=== PATIENT | female | born 1975 | race Caucasian/White ===

== ENCOUNTER → 2017-12-08 09:55 | Outpatient (CLI) | payer BC, SELFPAY ==
[2017-12-08 11:00] LABS: Absolute Lymphocyte Count 1.46 X10^3/ul (0.83-4.51); Absolute Neutrophil Count 3.7 X10^3/uL (2.0-7.7); Basophil# 0.01 X10^3/uL; Basophil% 0.2 % (0-1); Eosinophils% 1.7 % (0-5); Hematocrit 39.8 % (37-47); Hemoglobin 13.7 g/dl (12.0-15.0); Lymphocyte # 1.46 X10^3/ul (4.0); Lymphocyte % 24.8 % (19-41); Mean Corp Hgb Conc 34.4 g/gl (32-36); Mean Corpuscular Hgb 31.6 pg (27.0-32.0); Mean Corpuscular Volume 91.7 fL (81-99); Mean Platelet Vol. 10.7 fl (6.2-12.0); Monocyte# 0.56 X10^3/uL; Monocyte% 9.5 % (0-10); Neutrophil # 3.74 X10^3/uL (2.7-7.7); Neutrophil % 63.6 % (47-70); Platelet Count 284 K/mm3 (150-450); RBC Distribution Width CV 13.3 % (11.6-14.6); Red Blood Count 4.34 M/mm3 (4.2-5.4); White Blood Count 5.9 K/mm3 (4.4-11.0)
[2017-12-08 11:07] LABS: POSITIVE COUNT NO; POSITIVE DIFFERENTIAL NO; POSITIVE MORPHOLOGY NO
[2017-12-08 11:27] LABS: AST(SGOT) 16 U/L (15-37); Alanine Aminotransfer ALT/SGPT 21 U/L (13-56); Albumin, Serum 4.1 g/dL (3.2-5.0); Alkaline Phosphatase 36 U/L (45-117); Anion Gap 7 (5-15); BUN 11 mg/dL (7-18); BUN/Creat Ratio 12.3 RATIO (10-20); Calcium,Total 8.9 mg/dL (8.5-10.1); Chloride 107 mmol/L (98-107); Cholesterol 193 mg/dL (200); Creatinine, Serum 0.89 mg/dL (0.55-1.02); EST Glomerular Filtration Rate 73 mL/min (>60); Est Glom Filt Rate - Afr Amer 88 mL/min (>60); Globulin 4.1 g/dL (2.2-4.2); Glucose 92 mg/dL (74-106); High Density Lipoprotein 45 mg/dL; Potassium 3.8 mmol/L (3.5-5.1); Protein, Total 8.2 g/dL (6.4-8.2); Sodium Level 138 mmol/L (136-145); Thyroid Stim Hormone (TSH) 1.12 uIU/mL (0.358-3.74); Triglycerides 122 mg/dL; Very Low Density Lipoprotein 24 mg/dL (5-40)
[2017-12-21 12:06] LABS: HPV HC, High Risk Negative (Negative)
== END ==
PROVIDERS: Family Provider Family Medicine; PCP Family Medicine; Visit Provider Family Medicine
DX: D64.9 Anemia, unspecified (principal); N92.0 Excessive and frequent menstruation with regular cycle; Z12.4 Encounter for screening for malignant neoplasm of cervix
CPT/HCPCS: 36415; 80053; 80061; 84443; 85025; 87624; 88175; G0145

== ENCOUNTER → 2019-04-04 12:27 | Outpatient (CLI) | payer BC, SELFPAY ==
[2017-04-26 07:44] VITALS: BMI 29.1
--- NOTE | 2019-04-04 12:31 | RAD_ITS ---
STUDY: X-RAY - LEFT ELBOW REASON FOR EXAM: Female, 44 years old. Two-month history of pain. No known injury. TECHNIQUE: 3 view(s) of the elbow. COMPARISON: None. FINDINGS: Normal visualized humerus, radius and ulna. Normal radiocapitellar and ulnotrochlear articulations. The soft tissue structures are unremarkable. RAD/Elbow min 3 Views IMPRESSION: Normal x-ray examination of the elbow. Electronically Signed: Jose Enrique Noble, at 13:12 EDT , Service support ,
--- NOTE | 2019-04-04 12:31 | RAD_ITS ---
STUDY: X-RAY - LEFT SHOULDER REASON FOR EXAM: Female, 44 years old. 2 month history of pain. No known injury. TECHNIQUE: 4 view(s) of the shoulder. COMPARISON: Comparison is made with prior study dated April 23, 2012. FINDINGS: Normal glenohumeral articulation. Normal acromioclavicular joint. Normal acromion. Normal humeral head and visualized proximal humerus. The soft tissue structures are unremarkable. Normal visualized pulmonary apex. RAD/Shoulder min 2 Views IMPRESSION: Normal x-ray examination of the shoulder. Electronically Signed: Jose Enrique Noble, at 13:13 EDT , Service support ,
--- NOTE | 2019-04-04 12:31 | RAD_ITS ---
STUDY: X-RAY - CERVICAL SPINE REASON FOR EXAM: Female, 44 years old. 2 month history of left-sided neck pain. TECHNIQUE: 5 view(s) of the cervical spine were obtained including oblique views. COMPARISON: None FINDINGS: Normal anterior atlantoaxial articulation. Normal odontoid process. There is straightening of the normal cervical lordosis. Mild disc space narrowing and anterior spondylosis at the C4-C5, C5-C6 and C6-C7 levels. Normal visualized intervertebral neuroforamina. The soft tissue structures are unremarkable. RAD/Cerv Spine 4 or 5 Views IMPRESSION: Disc space narrowing and spondylosis at the C4-C5, C5-6 and C6-C7 levels. Electronically Signed: Jose Enrique Noble, at 13:04 EDT , Service support ,
== END ==
PROVIDERS: Family Provider Family Medicine; PCP Family Medicine; Referring Provider Family Medicine; Visit Provider Family Medicine
DX: M54.2 Cervicalgia (principal); M25.512 Pain in left shoulder; M25.529 Pain in unspecified elbow
CPT/HCPCS: 72050; 73030; 73080

== ENCOUNTER → 2019-04-11 16:17 | Outpatient (CLI) | payer BC, SELFPAY ==
--- NOTE | 2019-04-11 16:33 | MRI_ITS ---
STUDY: MRI CERVICAL SPINE WITHOUT CONTRAST REASON FOR EXAM: Female, 44 years old. L arm pain numbness and tingling, dull ache x 3 months TECHNIQUE: Standardized fat and water weighted pulse sequences were obtained in the sagittal and axial planes. COMPARISON: None FINDINGS: Normal foramen magnum and brainstem-cervical cord junction. Normal craniovertebral junction. Normal anterior atlantoaxial articulation. Normal odontoid process. Normal cervical lordosis. Normal vertebral bodies and posterior osseous elements. C2-3: Disc osteophyte complex without compressive sequelae. C3-4: Disc osteophyte complex with mild central canal and severe right foraminal stenosis. C4-5: Disc osteophyte complex with mild central canal and bilateral foraminal stenoses. C5-6: Disc osteophyte complex with mild central canal stenosis. C6-7: Disc osteophyte complex without compressive sequelae. C7-T1: Normal endplates. Normal disc height, signal and morphology. Normal central canal and intervertebral neural foramina. Normal cervical cord. Normal visualized soft tissue structures. MRI/Spine Cervical (Routine) IMPRESSION: Multilevel degenerative disease as described. Severe right foraminal stenosis at the C3-4 level. Electronically Signed: Julian Baker MD at 18:07 EDT Tel , Service support ,
== END ==
PROVIDERS: Family Provider Family Medicine; PCP Family Medicine; Referring Provider Family Medicine; Visit Provider Family Medicine
DX: M47.22 Other spondylosis with radiculopathy, cervical region (principal)
CPT/HCPCS: 72141

== ENCOUNTER → 2019-12-03 09:32 | Outpatient (CLI) | payer BC, SELFPAY ==
[2017-04-26 07:44] VITALS: BMI 29.1
[2019-12-03 12:42] LABS: Absolute Neutrophil Count 3.2 X10^3/uL (2.0-7.7); Basophil# 0.02 X10^3/uL; Basophil% 0.4 % (0-1); Eosinophil# 0.11 X10^3/uL; Eosinophils% 2.2 % (0-5); Hematocrit 36.1 % (37-47); Hemoglobin 11.2 g/dL (12.0-15.0); Lymphocyte % 23.9 % (19-41); Mean Corpuscular Hgb 27.6 pg (27.0-32.0); Mean Corpuscular Volume 88.9 fL (81-99); Mean Platelet Vol. 10.8 fl (6.2-12.0); Monocyte# 0.49 X10^3/uL; Monocyte% 9.8 % (0-10); NRBC Flagged by Analyzer 0 % (0-5); Neutrophil # 3.19 X10^3/uL (2.7-7.7); Neutrophil % 63.5 % (47-70); Platelet Count 288 K/mm3 (150-450); RBC Distribution Width CV 14.6 % (11.6-14.6); RBC Distribution Width SD 47.1 fl (35.1-43.9); Red Blood Count 4.06 M/mm3 (4.2-5.4)
[2019-12-03 12:53] LABS: Cholesterol 221 mg/dL (200); High Density Lipoprotein 50 mg/dL; Thyroid Stim Hormone (TSH) 0.91 uIU/mL (0.358-3.74); Triglycerides 124 mg/dL; Very Low Density Lipoprotein 25 mg/dL (5-40)
== END ==
PROVIDERS: PCP Family Medicine; Visit Provider Family Medicine
DX: R00.2 Palpitations (principal); E78.5 Hyperlipidemia, unspecified
CPT/HCPCS: 36415; 80061; 84443; 85025

== ENCOUNTER 2021-09-21 16:04 | Outpatient (CLI) | payer BC, SELFPAY ==
--- NOTE | 2021-09-21 16:06 | BI_ITS ---
MAMMOGRAPHY - BILATERAL SCREENING 3-D TOMOSYNTHESIS REASON FOR EXAM: Female, 46 years old. SCREENING PERTINENT HISTORY: No significant family history. TECHNIQUE: 2-D mammograms and 3-D Tomosynthesis of the breast (s) were performed. CAD was performed. COMPARISON: 02/02/2016 FINDINGS: The breast composition is heterogeneously dense that can obscure small breast masses. Scattered benign calcifications are seen. No dense spiculated masses or suspicious microcalcifications are identified. No architectural distortion is identified. There is no skin thickening or retraction. There has been no significant change since the prior study. BI/SCRN MAMM (CAD)W/WILMAR BILAT IMPRESSION: No mammographic signs of malignancy. Routine yearly mammograms recommended. ASSESSMENT CATEGORY: BIRADS Category 1: Negative. A letter regarding these results will be sent to the patient by the facility within 30 days. FOLLOW UP RECOMMENDATION: Yearly follow up mammogram recommended. (A) Approximately 10% of breast cancers are not detected by mammography. A normal mammogram should not delay biopsy of a clinically suspicious abnormality. Electronically Signed: Peter Gonzáles MD at 18:06 EDT ,
== END 2021-09-21 23:59 | disposition home or self-care (01) ==
PROVIDERS: PCP Family Medicine; Referring Provider Family Medicine; Visit Provider Family Medicine
DX: Z12.31 Encounter for screening mammogram for malignant neoplasm of breast (principal)
CPT/HCPCS: 77063; 77067

== ENCOUNTER 2021-09-28 16:15 | Outpatient (CLI) | payer BC, SELFPAY ==
--- NOTE | 2021-09-28 16:21 | US_ITS ---
STUDY: COMPLETE FEMALE PELVIC ULTRASOUND EXAMINATION OF 1639 HOURS AND 09/28/2021 REASON FOR EXAM: 46-year-old female with menometrorrhagia. LMP: 09/09/2021. TECHNIQUE: A complete pelvic ultrasound examination was performed via the transabdominal and endovaginal approaches. TECHNICAL QUALITY: Adequate. COMPARISON: None. FINDINGS: Cervical nabothian cysts are present. There is a normal size midline and retroverted uterus measures 8.7 cm in length by 7.0 cm in AP diameter by 5.5 cm in transverse diameter. The myometrium demonstrates multiple tiny cystic areas (Venetian blind sign) that probably represents adenomyosis. There is an endometrial thickness of 20 mm. The endometrium is hyperechoic. There is some increase in vascularity adjacent to the endometrial cavity. There is mild fluid distention of the endometrial cavity. There is no distinct evidence of endometrial cystic or solid mass lesions. There is no evidence of an intrauterine or ectopic . Right ovary measures 2.8 cm x 2.3 cm x 1.7 cm with a septated 1.7 cm simple cyst. There is no evidence of a solid mass lesion in the right ovary. There is no evidence of torsion. The left ovary measures 2.9 mm to 2.0 cm x 1.2 cm. There is a 1.2 cm diameter simple left ovarian cyst with septation. There is no evidence of a left ovarian solid mass lesion. There is no evidence of left ovarian torsion. There is no evidence of adnexal masses or free fluid in the cul-de-sac. The partially empty bladder has a normal appearance. US/Transvaginal Non- IMPRESSION: 1. Presence of cervical nabothian cysts. 2. Normal sized midline retroverted uterus with findings suggestive of adenomyosis. 3. Presence of a hypoechoic endometrium with a thickness of 20 mm with a small amount of fluid in endometrial cavity and mild increase in adjacent vascularity. 4. No evidence of an intrauterine ectopic . 5. Simple septated cysts in both ovaries: 1.7 cm simple cyst in the right ovary and a 1.2 cm simple cyst in left ovary. 6. No evidence of ovarian mass lesions or torsion. 7. No adnexal masses or free fluid in the cul-de-sac. 8. Normal appearing partially empty bladder. Electronically Signed: Parker Tsang MD at 22:12 EDT ,
== END 2021-09-28 23:59 | disposition home or self-care (01) ==
LOC: US 16:17
PROVIDERS: PCP Family Medicine; Referring Provider Family Medicine; Visit Provider Family Medicine
DX: N92.1 Excessive and frequent menstruation with irregular cycle (principal)
CPT/HCPCS: 76830; 76856

== ENCOUNTER 2021-10-13 12:20 | Outpatient (CLI) | payer BC, SELFPAY ==
--- NOTE | 2021-10-13 | IMM_PTH ---
PATIENT: CESAR CULP LOC: [facility] U#:[id number] AGE/SX: 46/F ROOM: RE10/13/[address]: Dr. Shiraz Triplett MD : 1975 BED: DIS: 10/13/2021 SPEC #: [id number] RECD: 10/15/21 13:20 STATUS: DONTE REGeraldo #: [id number] DAVID: 10/13/21 00:[address]: Shiraz Triplett DEPT: IMMUNOHISTOCHEMISTRY RECD BY: Natalie Moulton ENTERED: 10/15/21 13:20 SP TYPE: IMMUNO OTHR DR: Dr. Loyda Aviles DO Tissues: Endometrium, NOS Procedures: CD138 (initial) PHYSICIAN & INSTITUTION [place] [facility] [id number] SPECIMEN INFORMATION: Tissue Source: Endometrial biopsy Clinical Info: N92.0 Specimen Number: [id number] CPT code: 61765 METHODOLOGY: Deparaffinized sections of prefer/formalin-fixed tissue or PAP/DQ stained slides are incubated with monoclonal/polyclonal antibodies/oligonucleotide probes. Localization is made via biotin free immunoperoxidase method. Appropriate controls are performed and reacted as expected. Results on target cell population are indicated in the following table: RESULTS: ANTIBODY / CLONE RESULT CD138 (B-A38) negative These tests were developed and their performance characteristics determined by [facility]. They may not have been cleared or approved by the U.S. Food and Drug Administration. The FDA has determined that such clearance or approval is not necessary. The above immunohistochemical/dualISH markers are ordered and reviewed by the Pathologist. INTERPRETATION: Endometrium, biopsy: No evidence of chronic endometritis. AM:charito 10/18/2021
--- NOTE | 2021-10-13 11:15 | EMB_PTH ---
PATIENT: CESAR CULP LOC: [facility] U#:[id number] AGE/SX: 46/F ROOM: RE10/13/[address]: Dr. Shiraz Triplett MD : 1975 BED: DIS: 10/13/2021 SPEC #: [id number] RECD: 10/13/21 12:42 STATUS: DONTE JILL #: [id number] DAVID: 10/13/21 11:[address]: Shiraz Triplett DEPT: SURGICAL PATHOLOGY RECD BY: Loyda Jara ENTERED: 10/14/21 08:55 SP TYPE: ENDOM BX/C JOSE ALEJANDRO DR: Dr. Loyda Aviles, DO Tissues: Endometrium, NOS Procedures: Surgery Specimen Level IV HEADER OPERATION: Endometrial biopsy PRE-OP DIAGNOSIS: N92.0 TISSUE SUBMITTED: Endometrial biopsy MICROSCOPIC DIAGNOSIS Endometrium, biopsy: Proliferative endometrium with focal glandular breakdown. Mild chronic endometritis. See comment. AM:charito 10/15/2021 COMMENT Immunohistochemistry ([id number]) supports the above diagnosis. MICROSCOPIC DESCRIPTION Slides are reviewed. GROSS DESCRIPTION Received in fixative is one container labeled with the patient's name and designated endometrial biopsy. The specimen consists of multiple fragments of robles hemorrhagic soft tissue that in aggregate measure 2 x 2 x 0.2 cm. The specimen is totally submitted in one cassette. / SJ:rg 10/14/2021 TC:3 CPT: 72686
[2021-10-20 22:42] LABS: HPV Reflexed? NOT INDICATED
== END 2021-10-13 23:59 | disposition home or self-care (01) ==
LOC: LABSPEC 12:24
PROVIDERS: PCP Family Medicine; Visit Provider Obstetrics & Gynecology
DX: Z12.4 Encounter for screening for malignant neoplasm of cervix (principal); N92.0 Excessive and frequent menstruation with regular cycle
CPT/HCPCS: 88175; 88305; 88342; G0145

== ENCOUNTER 2021-11-19 06:02 | Day surgery (SDC) | payer BC, SELFPAY ==
[2021-11-16 12:00] LABS: Partial Thromboplast Time 26.8 Seconds (24.1-36.2); Prothrombin Time (Protime)PT. 12.9 SECONDS (11.7-14.9)
[2021-11-16 12:01] LABS: Hemoglobin 11.1 g/dL (12.0-15.0); Mean Corp Hgb Conc 31.7 g/dL (32-36); Mean Corpuscular Hgb 27.1 pg (27.0-32.0); Mean Corpuscular Volume 85.4 fL (81-99); Mean Platelet Vol. 10.6 fl (6.2-12.0); Platelet Count 290 K/mm3 (150-450); RBC Distribution Width CV 14.8 % (11.6-14.6); RBC Distribution Width SD 45.7 fl (35.1-43.9); White Blood Count 6.2 K/mm3 (4.4-11.0)
[2021-11-16 12:27] LABS: Internal QC Validated? YES +Cl - CLEAR BKGD; Pregnancy, Serum, hCG Quali. NEGATIVE Negative
--- NOTE | 2021-11-18 23:09 | PCM.HP.BLA ---
History and Physical Date of Admission: 11/19/21 Surgical History and Physical Rona Moran, a 46 year old female 2 0 0 0 2, presents for HTA, Hysteroscopy and D and C on November 19, 2021 at 0730 . -- Menorrhagia; Missed Menses -- Heavy bleeding for several years which began several years ago. Rona claims it started Heavy bleeding and has been present during menses. It is located in the Vagina. Associated signs and symptoms are Heavy bleeding lasting 4-5 years first two days heavy. EMBx and U/S OK. MEDICATIONS HISTORY: Patient is also takin. Prozac 40 mg capsule, One pill by mouth once a day 2. Adipex-P 37.5 mg tablet, 1/2 tab once daily on last dose this month ALLERGIES: NKA Infections - none Illnesses - no serious past illnesses Accidents - no injuries of consequence Hospitalizations - Childbirth Review of Systems: GENERAL - Denies fever, or chills SKIN - Denies skin changes EYES - Denies visual changes EARS - Denies difficulty hearing NOSE - Denies nasal congestion or bleeding MOUTH - Denies sore throat or difficulty swallowing NECK - Denies pain or swelling RESPIRATORY - Denies shortness of breath or wheezing CARDIOVASCULAR - Denies palpitations or chest pain GASTROINTESTINAL - Denies nausea, vomiting, diarrhea, constipation GENITOURINARY - Denies dysuria, frequency of urination, incontinence of urine MUSCULOSKELETAL - Denies joint or muscle pain NEUROLOGICAL - Denies localized numbness or weakness PSYCHIATRIC - Denies depression or anxiety ENDOCRINE - Denies heat or cold intolerance, weight loss or gain HEMATO-IMMUNOLOGIC - Denies excesive bleeding with cuts SOCIAL HISTORY: Alcohol Use - denies drinking Smoking - denies smoking Diet - balanced Diet Lifestyle - low stress lifestyle Exercise - active Seat Belt Use - always Employer - [employer] 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 Gallbladder removal ; - PHYSICAL EXAM BP- 132/84 Sitting, Right arm, regular cuff Weight- 160.0 lbs Height- 66 inch BMI:25.8 CONSTITUTIONAL - NAD, well nourished, and well developed SKIN - No rash, lesions, or ulcers HEENT - Normocephalic, PERRLA, EOMI NECK - no nodes, no nuchal rigidity and thyroid normal size and texture LYMPH NODES - Palpation of lymph nodes in neck and groins within normal limits LUNGS - CTA x2 without wheezes, crackles or rales CARDIAC - Regular rate and rhythm without rubs, murmurs, or gallops ABDOMEN - Without hepatosplenomegaly, distention, masses, rebound, or guarding; normal bowel sounds, no hernias EXTREMITIES - No edema or calf tenderness NEUROLOGICAL - Cranial nerves II-XII grossly intact PSYCHIATRIC - A and O to time, place, person, mood and affect External Genitial Vagina - non-tender without lesions Urethra/Urethral Meatus - non-tender Bladder - non-tender Vagina - vaginal brambila are pink and moist without loss of rugae and no evidence of atropy Cervix - without cervical motion tenderness and has normal size and features without evident lesions Uterus - multiparous size 6 cm & wt 75-125 g Adnexa - clear without massess or tenderness ASSESSMENT/PLAN: 1. Premenopausal Menorrhagia Reviewed pelvic u/s which was essentially normal for u/s done just before menses started. Discussed options such as OCPs versus ablation and pt desires the ablation. Plan HTA, D and C and H/S. Discussed RBAS and all questions answered.
[2021-11-19] VITALS (9 sets, daily range): BP systolic 109–125; BP diastolic 55–86; PULSE 61–84; RESP 16–18; TEMP 36.1–37; O2SAT 98–100; BMI 27.3
[2021-11-19] MEDS: Lactated Ringers 1,000 ML 15 ML IV (06:15)
[2021-11-19 06:31] LABS: Internal QC Validated? YES +Cl - CLEAR BKGD; Pregnancy, Urine Negative Negative
--- NOTE | 2021-11-19 07:30 | EMB_PTH ---
PATIENT: CESAR CULP LOC: [facility] [place] U#:[id number] AGE/SX: 46/F ROOM: RE11/19/[address]: Dr. Shiraz Triplett MD : 1975 BED: DIS: 11/19/2021 SPEC #: [id number] RECD: 11/19/21 08:42 STATUS: DONTE JILL #: [id number] DAVID: 11/19/21 07:[address]: Shiraz Triplett DEPT: SURGICAL PATHOLOGY RECD BY: Loyda Jara ENTERED: 11/19/21 08:58 SP TYPE: ENDOM BX/C JOSE ALEJANDRO DR: Dr. Loyda Aviles, DO Tissues: Endometrium, NOS Procedures: Surgery Specimen Level IV HEADER OPERATION: Hysteroscopy, D & C hydroablation PRE-OP DIAGNOSIS: Premenopausal menorrhagia TISSUE SUBMITTED: Endometrial curettings MICROSCOPIC DIAGNOSIS Endometrial curettings: Secretory endometrium. SJ:charito 11/22/2021 COMMENT Please make reference to previous specimen ([id number]) endometrium, biopsy with diagnosis of ?proliferative endometrium with focal glandular breakdown and mild chronic endometritis.? MICROSCOPIC DESCRIPTION Slides are reviewed. GROSS DESCRIPTION Received in fixative is one container labeled with the patient's name and designated endometrial curettings. The specimen consists of multiple irregular fragments of pink-robles soft tissue that in aggregate measure 5 x 3 x 0.2 cm. The specimen is totally submitted in two cassettes. / AM:charito 11/19/2021 TC:4 CPT: 05217
--- NOTE | 2021-11-19 07:35 | OP.PCM_ITS ---
Report of Operation Date of Procedure: 11/19/21 Pre-Operative Diagnosis: Menorrhagia Post-Operative Diagnosis: Menorrhagia Surgery/Procedure Performed:: Diagnostic Hysteroscopy, Dilation and Curettage, Hydrothermal Ablation Description of Surgical Findings:: 8 cm endometrial cavity without polyps or fibroids noted. Surgeon: Shiraz Triplett Type of Anesthesia: General (LMA) Anesthesiologist: Hiro Schwarz Specimen's removed: Endometrial curettings Estimated Blood Loss (mL): Minimal Fluids Replaced: Crystalloid Description of Procedure: Surgeon: Shiraz Triplett MD, FACOG Indication: This is a 46year old patient who has been having problems with extremely heavy menses. Conservative measures have not been helpful. Endometrial sampling was benign and pelvic ultrasound showed that ablation may be helpful. Pt has been counseled regarding the risks, benefits and alternatives of this procedure and all questions answered. She understands that only about half of patients will have amenorrhea after this procedure. Procedure: Patient taken to the operating room where after induction of general anesthesia the patient was prepped and draped in the usual sterile fashion. Bladder was drained of urine with a catheter. Anterior cervix grasped and cervix was dilated to about 17 Hebrew size. Hysteroscopic hydrothermal ablation (HTA) unit was place in the cervix and the above findings were noted. HTA unit was removed and the uterus was gently curretted removing all contents. An HTA ablation cycle was then carried out at about 90 degrees Centigrade for 10 minutes with virtually no fluid loss during the procedure. After an estelle ropriate cool down the HTA unit was removed with minimal bleeding noted. The patient tolerated the procedure well and was taken to the recovery room in satisfactory condition. Sponge, instruments and needle counts were all correct. There were no apparent complications of the surgery. Cefotan 2 gms IV was given prior to the procedure. Estimated Blood Loss: Minimal Specimen to Pathology: Endometrial Curettings Grafts/Implants Used: None Complications None Admit VTE Documentation VTE Present on Admission: Yes VTE Mechan Device Prophylaxis: SCD's
--- NOTE | 2021-11-19 07:39 | PCM.DC ---
Discharge Instructions Diet Discharge Diet: No restrictions Activity Discharge Activity: Return to Normal Activity, May Shower and May Take a Tub Bath May resume sexual activity in: 3 weeks Additional Activity Instructions:: Nothing in the vagina for 3-4 weeks please. Use Ibuprophen 800 mg orally every 8 hours as needed for pain. Can also add Tylenol 1000 mg every 8 hours if needed for pain. Drink lots of water. Call if bleeding more than a pad per hour. Clear to brownish discharge will last for about 3 weeks. Dressing / Incision Call your doctor if you observe: Fever of 101 or Higher, Inability to urinate, Inability to have a bowel movement and Using more than 1 pad per hour Follow Up Care Please Follow Up With: Shiraz Triplett MD When: 3 to 4 weeks Test Results: Test results from this visit will be discussed in further detail at your follow-up appointment, if applicable. Discharge Plan Admission Primary Reason for Your Visit: Endometrial Ablation Attending Provider: Shiraz Triplett Primary Care Provider: Loyda Aviles Discharge Orders/Prescriptions Prescriptions: No Action fluoxetine 20 MG tablet 20 mg PO DAILY RF: 0 Referrals / Follow Up: Loyda Aviles DO [Primary Care Provider] - Disposition Disposition (needs filled in before D/C Order can be placed): Home, Self Care
[2021-11-19] MEDS: Cefotetan 2 GM in 0.9% NS 100 ML IV (07:49)
[2021-11-19] MEDS: HYDROcodone Bitartrate/Apap 5/325 Tablet PO (09:28)
[2021-11-19] MEDS: Lactated Ringers 1,000 ML 100 ML IV (11:16)
--- NOTE | 2021-11-19 11:29 | SUR.PHASEII ---
AT APPROXIMATELY 1025, AMBULATED WITH ASSISTANCE OF 2 TO BATHROOM. UNABLE TO VOID AFTER ATTEMPT OF APPROXIMATELY 15 MINUTES. ASSISTED TO RETURN TO BED. BLADDER SCANNED FOR 300 CC.
== END 2021-11-19 11:55 | disposition home or self-care (01) ==
LOC: SDC 06:03 → AC 06:03
PROVIDERS: Anesthesiology; PCP Family Medicine; Referring Provider Obstetrics & Gynecology; Visit Provider Obstetrics & Gynecology
PROC: 0U5B8ZZ Destruction of Endometrium, Via Natural or Artificial Opening Endoscopic (ICD-10-PCS; CPT 58563; principal; 2021-11-19 07:15)
DX: N92.4 Excessive bleeding in the premenopausal period (principal)
CPT/HCPCS: 58353; 00940; 36415; 81025; 84703; 85027; 85610; 85730; 86850; 86900; 86901; 87426; 88305; C9803; J7120; J2405

== ENCOUNTER → 2023-07-07 | Outpatient (CLI) | payer OTHER, SELFPAY ==
--- NOTE | 2023-07-07 07:19 | BI_ITS ---
MAMMOGRAPHY - BILATERAL SCREENING 3-D TOMOSYNTHESIS REASON FOR EXAM: Female, 48 years old. Routine annual screening mammogram. PERTINENT HISTORY: No significant family history. TECHNIQUE: 2-D mammograms and 3-D Tomosynthesis of the breast (s) were performed. CAD was performed. COMPARISON: September 21, 2021, February 02, 2016 FINDINGS: The breast composition is composed of scattered fibroglandular density. Stable benign calcifications. No dominant masses, suspicious microcalcifications, asymmetries, skin thickening or nipple retraction. BI/SCRN MAMM (CAD)W/WILMAR BILAT IMPRESSION: No interval change and no mammographic signs of malignancy. Routine yearly mammogram recommended. ASSESSMENT CATEGORY: BIRADS Category 2: Benign. A letter regarding these results will be sent to the patient by the facility within 30 days. FOLLOW UP RECOMMENDATION: Yearly follow up mammogram recommended. (A) Approximately 10% of breast cancers are not detected by mammography. A normal mammogram should not delay biopsy of a clinically suspicious abnormality. Electronically Signed: Schuyler Nolasco MD at 12:18 EST ,
--- OUTSIDE RECORDS SUMMARY | 2023-07-07 07:22 | XMS RPT_ITS | CCD ---
Author Name Unknown Address [address] [place] [address] Organization [facility] Care Team Providers Care Geophysics Professor Name Role Phone Loyda Aviles DO Primary Care Provider LOYDA AVILES Primary Care Unavailable SIMONE MAC Referring Unavailable LOYDA AVILES Primary Care Unavailable SKYLER SHOOK Referring Unavailable LOYDA AVILES Primary Care Unavailable LOYDA AVILES Primary Care Unavailable Medications Completed/Discontinued Medications Medication Drug Class(es) Dates Sig (Normalized) Sig (Original) FLUoxetine 40 mg oral capsule (5 sources) Serotonin Reuptake Inhibitor Start: 01-03-2022 FLUoxetine (PROZAC) 40 mg capsule Ibuprofen (2 sources) Nonsteroidal Anti-inflammatory Drug ibuprofen (MOTRIN ORAL) Take by mouth. 0 Active Problems Active Problems Problem Classification Problem Date Documented Da te Episodic/Chronic Fracture of lower limb (1 source) Closed fracture of left foot; Translations: [Unspecified fracture of left foot, initial encounter for closed fracture] Episodic Other connective tissue disease (1 source) Pain in left foot; Translations: [Pain in left foot] Episodic Other connective tissue disease (1 source) Pain in left foot; Translations: [Foot pain, left] Onset: 05-03-2022 Episodic Past or Other Problems Problem Classification Problem Date Documented Da te Episodic/Chronic Abdominal pain (10 sources) Right upper quadrant pain; Translations: [Right upper quadrant pain] Onset: 08-15-2014 08-15-2014 Episodic Other upper respiratory infections (2 sources) Acute upper respiratory infection; Translations: [Acute upper respiratory infection, unspecified] Onset: 01-06-2022 Episodic Results Test Name Value Interpretation Reference Range Facil ity Vital Signs Date Time Vital Sign Value Performing Clinician Faci lity 05-03-2022 11:06-0400 Body temperature 99 [degF] Simone Mac SHIP'S SURVEYOR.METAL OFF BEARER Work Phone: [facility] 05-03-2022 11:06-0400 Diastolic blood pressure 76 mm[Hg] Simone Mac SHIP'S SURVEYOR.METAL OFF BEARER Work Phone: [facility] 05-03-2022 11:06-0400 Heart rate 67 /min Simone Mac SHIP'S SURVEYOR.METAL OFF BEARER Work Phone: [facility] 05-03-2022 11:06-0400 Respiratory rate 16 /min Simone Mac SHIP'S SURVEYOR.METAL OFF BEARER Work Phone: [facility] 05-03-2022 11:06-0400 SaO2% (BldA) [Mass fraction] 98 % Simone Mac SHIP'S SURVEYOR.METAL OFF BEARER Work Phone: [facility] 05-03-2022 11:06-0400 Systolic blood pressure 124 mm[Hg] Simone Mac SHIP'S SURVEYOR.METAL OFF BEARER Work Phone: [facility] 01-06-2022 10:29-0400 Body temperature 99 [degF] Skyler Shook MD Work Phone: [facility] 01-06-2022 10:29-0400 Body weight 71.85 kg Skyler Shook MD Work Phone: [facility] 01-06-2022 10:29-0400 Diastolic blood pressure 84 mm[Hg] Skyler Shook MD Work Phone: [facility] 01-06-2022 10:29-0400 Heart rate 65 /min Skyler Shook MD Work Phone: [facility] 01-06-2022 10:29-0400 Respiratory rate 16 /min Skyler Shook MD Work Phone: [facility] 01-06-2022 10:29-0400 SaO2% (BldA) [Mass fraction] 100 % Skyler Shook MD Work Phone: [facility] 01-06-2022 10:29-0400 Systolic blood pressure 126 mm[Hg] Skyler Shook MD Work Phone: [facility] Encounters Encounter Date Encounter Type Care Provider Facility Start: 05-11-2022 [facility] Start: 05-03-2022 End: 05-03-2022 ambulatory LOYDA AVILES Facility:[facility] Start: 05-03-2022 End: 05-03-2022 Patient encounter procedure Simone Mac APRN.METAL OFF BEARER Work Phone: [facility] Plan of Treatment Date Care Activity Detail Author Start: 03-10-2022 Influenza vaccination INFLUENZA (#1) [facility] Start: 01-06-2022 End: 01-20-2022 SARS-CoV-2 (COVID-19) RNA [Presence] in Respiratory specimen by DEJAH with probe detection [facility] Work Phone: Payers Date Payer Category Payer Private Health Insurance [employer] Jim FANA OAP [id number] 2021-Present [phone] [address] [place] [address] Open Access [id number] 2021 Private Health Insurance [id number] 2021 Unknown JAY JAY SANDERS ACCE SS PPO [id number] 2021-Present [phone] [address] [place] [address] PPO [id number] 2021 Unknown [id number] Social History Date Type Detail Facility Start: 01-06-2022 End: 05-03-2022 Tobacco smoking status NHIS Never smoked tobacco [facility] Start: 01-06-2022 End: 05-03-2022 Tobacco use and exposure Smokeless tobacco non-user [facility] Start: 01-06-2022 End: 05-03-2022 Alcohol intake Lifetime non-drinker (finding) [facility] Start: 01-06-2022 History SDOH Alcohol Frequency 1 [facility] Start: 1975 Sex Assigned At Not on file [facility] Start: 12-27-2021 End: 05-03-2022 Exposure to SARS-CoV-2 (event) Not sure [facility] Work Phone: Clinical Notes 01-06-2022 to 05-11-2022 Timo Adkins - 05/11/2022 4:46 PM EDTPatient Ludwig Mac APRN.CNP - 05/03/2022 11:09 AM EDTTelephone Encounter - Vannessa Fariaxiomarasloane SPECIAL SERVICE OFFICER - 01/07/2022 2:58 PM EDT Note Date & Type Note Facility 05-11-2022 Note HNO ID: [id number] Author: Timo Adkins Service: ? Author Type: ? Type: Progress Notes Filed: 05/11/2022 4:47 PM Note Text: POPULATION HEALTH NAVIGATION OUTREACH Action/FYI Attempted to contact pt, voicemail not set up Pt identified by name and : NO Outreach Outcome/Action Unable to reach patient: Phone number not valid / voicemail full Did you use a PCP flex slot to schedule this appointment? No Reason for Outreach Care Gap or Scheduling/Wellness visits Payer: Payor: ANALIA / Plan: ANALIA OAP / Product Type: Open Access / Care Gap Reviewed:: Specialty Scheduling Reminder: Reminder note to check Health Maintenance for items below Health Maintenance items due: HEPATITIS B(1 of 3 - 3-dose series) Never done HEPATITIS C SCREENING Never done HIV SCREENING Never done DTAP,TDAP,TD(1 - Tdap) Never done PAP TESTING Never done HPV TESTING Never done MAMMOGRAM Never done LIPID SCREEN Never done DIABETES SCREEN Never done COLORECTAL CANCER SCREENING Never done COVID-19 VACCINE(3 - Booster for Moderna series) due on 11/30/2020 DEPRESSION ASSESSMENT Never done INFLUENZA(1) due on 03/10/2022 Message Sent to Practice: No Navigation Signature: Timo Adkins May 11, 2022 4:46 PM [facility] 05-11-2022 History of Presen t illness Narrative POPULATION HEALTH NAVIGATION OUTREACH Action/FYI Attempted to contact pt, voicemail not set up Pt identified by name and : NO Outreach Outcome/Action Unable to reach patient: Phone number not valid / voicemail full Did you use a PCP flex slot to schedule this appointment? No Reason for Outreach Care Gap or Scheduling/Wellness visits Payer: Payor: ANALIA / Plan: [employer] OAP / Product Type: Open Access / Care Gap Reviewed:: Specialty Scheduling Reminder: Reminder note to check Health Maintenance for items below Health Maintenance items due: HEPATITIS B(1 of 3 - 3-dose series) Never done HEPATITIS C SCREENING Never done HIV SCREENING Never done DTAP,TDAP,TD(1 - Tdap) Never done PAP TESTING Never done HPV TESTING Never done MAMMOGRAM Never done LIPID SCREEN Never done DIABETES SCREEN Never done COLORECTAL CANCER SCREENING Never done COVID-19 VACCINE(3 - Booster for Moderna series) due on 11/30/2020 DEPRESSION ASSESSMENT Never done INFLUENZA(1) due on 03/10/2022 Message Sent to Practice: No Navigation Signature: Timo Adkins May 11, 2022 4:46 PM documented in this encounter [facility] 05-11-2022 Note Patient Outreach (AC CC) RONA CULP ([id number]) 1975 F Date Time Provider Department 05/11/22 PCP (HISTORICAL) [facility] During your visit today, we recorded the following information about you: Timo Adkins 05/11/2022 4:47 PM Signed POPULATION HEALTH NAVIGATION OUTREACH Action/FYI Attempted to contact pt, voicemail not set up Pt identified by name and : NO Outreach Outcome/Action Unable to reach patient: Phone number not valid / voicemail full Did you use a PCP flex slot to schedule this appointment? No Reason for Outreach Care Gap or Scheduling/Wellness visits Payer: Payor: ANALIA / Plan: CIG[employer] OAP / Product Type: Open Access / Care Gap Reviewed:: Specialty Scheduling Reminder: Reminder note to check Health Maintenance for items below Health Maintenance items due: HEPATITIS B(1 of 3 - 3-dose series) Never done HEPATITIS C SCREENING Never done HIV SCREENING Never done DTAP,TDAP,TD(1 - Tdap) Never done PAP TESTING Never done HPV TESTING Never done MAMMOGRAM Never done LIPID SCREEN Never done DIABETES SCREEN Never done COLORECTAL CANCER SCREENING Never done COVID-19 VACCINE(3 - Booster for Moderna series) due on 11/30/2020 DEPRESSION ASSESSMENT Never done INFLUENZA(1) due on 03/10/2022 Message Sent to Practice: No Navigation Signature: Timo Adkins May 11, 2022 4:46 PM Allergies As of Date: 05/11/2022 (No Known Allergies) Date Reviewed: 05/03/2022 Reviewed by: Shiela Beckett LPN - Fully Assessed Prescriptions as of 05/11/2022 - ibuprofen (MOTRIN ORAL) Take by mouth. - FLUoxetine (PROZAC) 40 mg capsule Problem List As Of Date 05/11/2022 Noted Resolved Abdominal pain, right upper quadrant [R10.11] 08/15/2014 Abdominal pain, epigastric [R10.13] 08/15/2014 Encounter Status:Closed by TIMO ADKINS on 05/11/22 [facility] 05-03-2022 Note HNO ID: [id number] Author: RT Sohail(R) Service: Radiology Author Type: Technologist Type: Progress Notes Filed: 05/03/2022 11:41 AM Note Text: Radiology Service Progress Note PATIENT NAME: Rona Culp DATE OF SERVICE: May 03, 2022 TIME: 11:33 AM PATIENT IDENTITY VERIFICATION COMPLETED USING TWO (2) IDENTIFIERS: Name and Date of confirmed by patient verbally. FALL SCREENING: Has the patient had 2 falls in the last year or 1 fall with injury or currently using an Ambulatory Assistive Device (Walker, Cane, Wheelchair, Crutches, etc.)? Yes, Patient High Risk for Falls What interventions were put in place to prevent falls during this visit? Increased Observations by Caregivers PATIENT GENDER DATA: Female. status: : No status: NO. PATIENT RELEVANT IMPLANT DATA REVIEWED: Yes RADIOLOGY DEPARTMENT: General X-ray: Exam(s) Completed: Lower Extremity X-Ray(s): Foot, Left PERIPHERAL IV DATA: Not applicable SIGNED BY: Pamela Velásquez, RT(R) May 03, 2022 11:33 AM [facility] 05-03-2022 Note HNO ID: [id number] Author: Simone Mac APRN.METAL OFF BEARER Service: ? Author Type: Nurse Practitioner Type: Progress Notes Filed: 05/03/2022 12:31 PM Note Text: This note was created using NoteWriter. Subjective Rona Culp is a 47 year old female. 47 year old female with no PMH presents for complaints of foot pain. Acute onset last night Left foot. Endorses she was on uneven pavement, and slipped and Ultimately rolled left foot outward. +pain +swelling + bruising Denies head trauma or injury. Denies LOC. Denies neck or back pain Denies skin rash or lesions Denies blood thinners. Denies prior history of foot fractures The history is provided by the patient. No speech language therapist was used. Pain (foot) Pain location: left foot. This is a new problem. The current episode started yesterday. There has been a history of trauma. The problem occurs constantly. The problem has been unchanged. The quality of the pain is described as aching and sharp. The pain is at a severity of 6/10. The pain is moderate. Pertinent negatives include no fever, inability to bear weight, itching, joint locking, joint swelling, limited range of motion, numbness, stiffness or tingling. The symptoms are aggravated by activity. She has tried rest for the symptoms. The treatment provided no relief. Family history does not include gout or rheumatoid arthritis. There is no history of diabetes, gout, osteoarthritis or rheumatoid arthritis. PAST MEDICAL HISTORY Diagnosis Date Anxiety and depression PAST SURGICAL HISTORY Procedure Laterality Date EGD TRANSORAL BIOPSY SINGLE/MULTIPLE 08/20/2014 normal upper endoscopy LAPS SURG CHOLECYSTECTOMY W/CHOLANGIOGRAPHY 09/02/2014 normal IOC S BALLOON,UTERINE ABLATION [id number] 11/24/2021 ALLERGIES Patient has no known allergies. MEDICATIONS ibuprofen (MOTRIN ORAL) Take by mouth. FLUoxetine (PROZAC) 40 mg capsule FAMILY HISTORY Problem Relation Age of Onset Lipids Father Social History Tobacco Use Smoking status: Never Smokeless tobacco: Never Substance Use Topics Alcohol use: Never Drug use: Never Review of Systems Constitutional: Negative for activity change, appetite change, chills and fever. Eyes: Negative for pain, discharge, redness and itching. Respiratory: Negative for apnea, choking and chest tightness. Cardiovascular: Negative for chest pain, palpitations and leg swelling. Gastrointestinal: Negative for abdominal pain, diarrhea, nausea and vomiting. Musculoskeletal: Negative for gout and stiffness. Left foot pain Skin: Negative for color change, itching, pallor, rash and wound. Allergic/Immunologic: Negative for environmental allergies, food allergies and immunocompromised state. Neurological: Negative for dizziness, tingling, facial asymmetry, light-headedness, numbness and headaches. Hematological: Negative for adenopathy. Does not bruise/bleed easily. Psychiatric/Behavioral: Negative for agitation and behavioral problems. Objective BP 124/76 Pulse 67 Temp 37.2 ?C (99 ?F) Resp 16 LMP (LMP Unknown) SpO2 98% Physical Exam Vitals and nursing note reviewed. Constitutional: General: She is not in acute distress. Appearance: Normal appearance. She is normal weight. She is not ill-appearing, toxic-appearing or diaphoretic. HENT: Head: Normocephalic and atraumatic. Right Ear: Ear canal and external ear normal. Left Ear: Ear canal and external ear normal. Nose: Nose normal. No congestion or rhinorrhea. Mouth/Throat: Mouth: Mucous membranes are moist. Pharynx: No oropharyngeal exudate or posterior oropharyngeal erythema. Eyes: General: Right eye: No discharge. Left eye: No discharge. Extraocular Movements: Extraocular movements intact. Conjunctiva/sclera: Conjunctivae normal. Pupils: Pupils are equal, round, and reactive to light. Cardiovascular: Rate and Rhythm: Normal rate and regular rhythm. Pulses: Normal pulses. Heart sounds: Normal heart sounds. No murmur heard. No friction rub. Pulmonary: Effort: Pulmonary effort is normal. No respiratory distress. Breath sounds: Normal breath sounds. No stridor. No wheezing, rhonchi or rales. Chest: Chest wall: No tenderness. Abdominal: General: Abdomen is flat. There is no distension. Palpations: Abdomen is soft. There is no mass. Tenderness: There is no abdominal tenderness. There is no right CVA tenderness, left CVA tenderness, guarding or rebound. Hernia: No hernia is present. Musculoskeletal: General: No swelling, tenderness, deformity or signs of injury. Normal range of motion. Cervical back: Normal range of motion and neck supple. No rigidity. Right lower leg: No edema. Left lower leg: No edema. Feet: Lymphadenopathy: Cervical: No cervical adenopathy. Skin: General: Skin is warm and dry. Capillary Refill: Capillary refill takes less than 2 seconds. Coloration: Skin is not jaundiced or pale. Findings: (more content not included)... [facility] 05-03-2022 Instructions Simone Mac APRN.FABIAN - 05/03/2022 12:14 PM EDT R.I.C.E. The general care of your injury includes the following: Resting, Icing, Compressing and Elevating the injured area. Remember this as RICE. REST: Limit the use of the injured body part. ICE: By applying ice to the affected area, swelling and pain can be reduced. Place some ice cubes in a re-sealable (Ziploc) bag and add some water. Put a thin washcloth between the bag and your skin. Apply the ice bag to the area for at least 20 minutes. Do this at least 4 times per day. Using the ice for longer times and more frequently is OK. NEVER APPLY ICE DIRECTLY TO THE SKIN. COMPRESS: Compression means to apply pressure around the injured area such as with a splint, cast or an caleb bandage. Compression decreases swelling and improves comfort. Compression should be tight enough to relieve swelling but not so tight as to decrease circulation. Increasing pain, numbness, tingling, or change in skin color, are all signs of decreased circulation. ELEVATE: Elevate the injured part. For example, elevate your foot by placing it on a chair while sitting, or propping it up on pillows when lying down. documented in this encounter [facility] 05-03-2022 History of Presen t illness Narrative Images from the original note were not included. This note was created using Alter Wayriter. Subjective Rona Culp is a 47 year old female. 47 year old female with no PMH presents for complaints of foot pain. Acute onset last night Left foot. Endorses she was on uneven pavement, and slipped and Ultimately rolled left foot outward. +pain +swelling + bruising Denies head trauma or injury. Denies LOC. Denies neck or back pain Denies skin rash or lesions Denies blood thinners. Denies prior history of foot fractures The history is provided by the patient. No speech language therapist was used. Pain (foot) Pain location: left foot. This is a new problem. The current episode started yesterday. There has been a history of trauma. The problem occurs constantly. The problem has been unchanged. The quality of the pain is described as aching and sharp. The pain is at a severity of 6/10. The pain is moderate. Pertinent negatives include no fever, inability to bear weight, itching, joint locking, joint swelling, limited range of motion, numbness, stiffness or tingling. The symptoms are aggravated by activity. She has tried rest for the symptoms. The treatment provided no relief. Family history does not include gout or rheumatoid arthritis. There is no history of diabetes, gout, osteoarthritis or rheumatoid arthritis. PAST MEDICAL HISTORY Diagnosis Date Anxiety and depression PAST SURGICAL HISTORY Procedure Laterality Date EGD TRANSORAL BIOPSY SINGLE/MULTIPLE 08/20/2014 normal upper endoscopy LAPS SURG CHOLECYSTECTOMY W/CHOLANGIOGRAPHY 09/02/2014 normal IOC S BALLOON,UTERINE ABLATION [id number] 11/24/2021 ALLERGIES Patient has no known allergies. MEDICATIONS ibuprofen (MOTRIN ORAL) Take by mouth. FLUoxetine (PROZAC) 40 mg capsule FAMILY HISTORY Problem Relation Age of Onset Lipids Father Social History Tobacco Use Smoking status: Never Smokeless tobacco: Never Substance Use Topics Alcohol use: Never Drug use: Never Review of Systems Constitutional: Negative for activity change, appetite change, chills and fever. Eyes: Negative for pain, discharge, redness and itching. Respiratory: Negative for apnea, choking and chest tightness. Cardiovascular: Negative for chest pain, palpitations and leg swelling. Gastrointestinal: Negative for abdominal pain, diarrhea, nausea and vomiting. Musculoskeletal: Negative for gout and stiffness. Left foot pain Skin: Negative for color change, itching, pallor, rash and wound. Allergic/Immunologic: Negative for environmental allergies, food allergies and immunocompromised state. Neurological: Negative for dizziness, tingling, facial asymmetry, light-headedness, numbness and headaches. Hematological: Negative for adenopathy. Does not bruise/bleed easily. Psychiatric/Behavioral: Negative for agitation and behavioral problems. Objective BP 124/76 Pulse 67 Temp 37.2 C (99 F) Resp 16 LMP (LMP Unknown) SpO2 98% Physical Exam Vitals and nursing note reviewed. Constitutional: General: She is not in acute distress. Appearance: Normal appearance. She is normal weight. She is not ill-appearing, toxic-appearing or diaphoretic. HENT: Head: Normocephalic and atraumatic. Right Ear: Ear canal and external ear normal. Left Ear: Ear canal and external ear normal. Nose: Nose normal. No congestion or rhinorrhea. Mouth/Throat: Mouth: Mucous membranes are moist. Pharynx: No oropharyngeal exudate or posterior oropharyngeal erythema. Eyes: General: Right eye: No discharge. Left eye: No discharge. Extraocular Movements: Extraocular movements intact. Conjunctiva/sclera: Conjunctivae normal. Pupils: Pupils are equal, round, and reactive to light. Cardiovascular: Rate and Rhythm: Normal rate and regular rhythm. Pulses: Normal pulses. Heart sounds: Normal heart sounds. No murmur heard. No friction rub. Pulmonary: Effort: Pulmonary effort is normal. No respiratory distress. Breath sounds: Normal breath sounds. No stridor. No wheezing, rhonchi or rales. Chest: Chest wall: No tenderness. Abdominal: General: Abdomen is flat. There is no distension. Palpations: Abdomen is soft. There is no mass. Tenderness: There is no abdominal tenderness. There is no right CVA tenderness, left CVA tenderness, guarding or rebound. Hernia: No hernia is present. Musculoskeletal: General: No swelling, tenderness, deformity or signs of injury. Normal range of motion. Cervical back: Normal range of motion and neck supple. No rigidity. Right lower leg: No edema. Left lower leg: No edema. Feet: Lymphadenopathy: Cervical: No cervical adenopathy. Skin: General: Skin is warm and dry. Capillary Refill: Capillary refill takes less than 2 seconds. Coloration: Skin is not jaundiced or pale. Findings: No bruising, erythema, lesion or rash. Neurological: General: No focal deficit present. Mental Status: She is alert and oriented to person, place, and time. Cranial Nerves: No cranial nerve deficit. Sensory: No sensory deficit. Motor: No weakness. Coordination: Coordination normal. Gait: Gait normal. Psychiatric: Mood and Affect: Mood normal. Behavior: Behavior normal. Thought Content: Thought content normal. Judgment: Judgment normal. Assessment and Plan ASSESSMENT/PLAN: 1. Foot pain, left - ICD9: 729.5, ICD10: M79.672 (primary diagnosis) +injury Yesterday Twisted and fell - XR FOOT GENERAL 3V AP/LAT/OBL LEFT - CONSULT TO ORTHOPAEDICS 2. Closed fracture of left foot, initial encounter - ICD9: 825.20, ICD10: S92.902A + fracture Radiologist read reveals IMPRESSION: Fifth metatarsal fracture. Bunion deformity. Pre fabricated walking boot off shelf placed on patient by nursing staff DOJO paperwork completed RICE therapy OTC analgesics Use home crutches NWB - CONSULT TO ORTHOPAEDICS Simone Mac APRN.FABIAN documented in this encounter [facility] 01-07-2022 Miscellaneous Notes Faxed per request.Vannessa Vick LPN Patient is calling requesting covid results be faxed to her employer [employer] at [phone]. documented in this encounter [facility] 01-07-2022 Miscellaneous Notes Phone call placed patient advised (see prior provider encounter) Patient verbalized understanding, agreed with plan of care. Shiela Beckett LPN Please inform patient of COVID positive results. Treatment is viral and therefore treatment is aimed at supportive measures. Rest, fluids, over the counter medicines to treat specific symptoms. Follow CDC guidelines. If you are interested in obtaining antiviral or monoclonal please reach out to your primary care physician or your [facility] online. documented in this encounter [facility] 01-06-2022 Note HNO ID: [id number] Author: Skyler Shook MD Service: ? Author Type: Physician Type: Progress Notes Filed: 01/06/2022 11:27 AM Note Text: Patient presents with: Fever: sore throat pain rated 5, 3 days , fever HPI: Feeling sick for 3 days. Her and daughter have been sick also. They were on vacation in [place] last week. Positive symptoms: Sore throat, Fever, Shortness of breath, Chest burning, Nasal Congestion, Rhinorrhea, Post nasal drainage, Headache, Negative symptoms: Nausea, Vomiting, Diarrhea, OTC: Ibuprofen, 's albuterol neb (helped) Had 2nd dose of Moderna COVID-19 vaccine in September 2020. May have had COVID in May when her daughter had it, but it was not confirmed by testing. Denies history of asthma, pneumonia, or wheezing with colds. PAST MEDICAL HISTORY Diagnosis Date - Anxiety and depression PAST SURGICAL HISTORY Procedure Laterality Date - EGD TRANSORAL BIOPSY SINGLE/MULTIPLE 08/20/2014 normal upper endoscopy - LAPS SURG CHOLECYSTECTOMY W/CHOLANGIOGRAPHY 09/02/2014 normal IOC - S [place] [id number] 11/24/2021 MEDICATIONS: Current Outpatient Medications Medication Sig - FLUoxetine (PROZAC) 40 mg capsule No current facility-administered medications for this visit. ALLERGIES: ALLERGIES No Known Allergies VITALS: BP 126/84 Pulse 65 Temp 37.2 ?C (99 ?F) Resp 16 Wt 71.8 kg (158 lb 6.4 oz) SpO2 100% BMI 28.06 kg/m? PHYSICAL EXAM: GEN: mildly ill appearing HEENT: PERRL, EOMI, conjunctiva clear Ears: canals clear. TMs without erythema, bulge, or effusion Sinuses: non-tender frontal sinus, non-tender maxillary sinuses Throat: moist mucous membranes, mild erythema, no exudate Neck: supple, no thyromegaly, no lymphadenopathy HEART: regular rate and rhythm, no murmurs LUNGS: clear to auscultation, no wheezes or crackles, no increased WOB ASSESSMENT/PLAN: 1. URI, acute - ICD9: 465.9, ICD10: J06.9 - suspect viral URI, differential includes COVID-19. - Discussed supportive care treatment with home isolation, rest, cold medicine, and analgesia. Declines her on Rx for albuterol. Antibiotic like her got would not be helpful for viral symptoms. - Red flags to seek further treatment include chest pain, shortness of breath, and lethargy; in the ER if severe. - 2019 CORONAVIRUS Skyler Shook MD [facility] 01-06-2022 History of Presen t illness Narrative Patient presents with: Fever: sore throat pain rated 5, 3 days , fever HPI: Feeling sick for 3 days. Her and daughter have been sick also. They were on vacation in [place] last week. Positive symptoms: Sore throat, Fever, Shortness of breath, Chest burning, Nasal Congestion, Rhinorrhea, Post nasal drainage, Headache, Negative symptoms: Nausea, Vomiting, Diarrhea, OTC: Ibuprofen, 's albuterol neb (helped) Had 2nd dose of Moderna COVID-19 vaccine in September 2020. May have had COVID in May when her daughter had it, but it was not confirmed by testing. Denies history of asthma, pneumonia, or wheezing with colds. PAST MEDICAL HISTORY Diagnosis Date Anxiety and depression PAST SURGICAL HISTORY Procedure Laterality Date EGD TRANSORAL BIOPSY SINGLE/MULTIPLE 08/20/2014 normal upper endoscopy LAPS SURG CHOLECYSTECTOMY W/CHOLANGIOGRAPHY 09/02/2014 normal IOC S [place] [id number] 11/24/2021 MEDICATIONS: Current Outpatient Medications Medication Sig FLUoxetine (PROZAC) 40 mg capsule No current facility-administered medications for this visit. ALLERGIES: ALLERGIES No Known Allergies VITALS: BP 126/84 Pulse 65 Temp 37.2 C (99 F) Resp 16 Wt 71.8 kg (158 lb 6.4 oz) SpO2 100% BMI 28.06 kg/m PHYSICAL EXAM: GEN: mildly ill appearing HEENT: PERRL, EOMI, conjunctiva clear Ears: canals clear. TMs without erythema, bulge, or effusion Sinuses: non-tender frontal sinus, non-tender maxillary sinuses Throat: moist mucous membranes, mild erythema, no exudate Neck: supple, no thyromegaly, no lymphadenopathy HEART: regular rate and rhythm, no murmurs LUNGS: clear to auscultation, no wheezes or crackles, no increased WOB ASSESSMENT/PLAN: 1. URI, acute - ICD9: 465.9, ICD10: J06.9 - suspect viral URI, differential includes COVID-19. - Discussed supportive care treatment with home isolation, rest, cold medicine, and analgesia. Declines her on Rx for albuterol. Antibiotic like her got would not be helpful for viral symptoms. - Red flags to seek further treatment include chest pain, shortness of breath, and lethargy; in the ER if severe. - 2019 CORONAVIRUS Skyler Shook MD documented in this encounter [facility] Foot pain, left- Primary Pain in limb Closed fracture of left foot, initial encounter documented in this encounter [facility] Health Concerns Infection Onset Date Last Indicated Resolved Time COVID-19 Rule-Out 01/06/2022 01/06/2022 Infection Onset Date Last Indicated Resolved Time COVID-19 Rule-Out 01/06/2022 01/06/2022 01/06/2022 9:28 PM EDT COVID-19 Confirmed 01/06/2022 01/06/2022 Infection Onset Date Last Indicated Resolved Time COVID-19 Confirmed 01/06/2022 01/06/2022 Reason for Referral Specialty Diagnoses / Procedures Referred By Chi merritt Referred To Contact Orthopedics Diagnoses Foot pain, left Closed fracture of left foot, initial encounter Procedures CONSULT TO ORTHOPAEDICS OFFICE/OUTPATIENT [facility] 60-74 MINUTES Simone Mac, CHARLENE.[employer] [address] [place] [address] Referral ID Status Reason Start Date Expiration Date Visits Requested Visits Authorized [id number] Authorized PCP Requested Referral 2 05/03/2023 1 1 Specialty Diagnoses / Procedures Referred By Chi merritt Referred To Contact XR IMAGING Diagnoses Foot pain, left Procedures XR FOOT GENERAL 3V AP/LAT/OBL LEFT RADEX FOOT COMPLETE MINIMUM 3 VIEWS Simone Mac APRN.[employer] [address] [place] [address] Xr Imaging Referral ID Status Reason Start Date Expiration Date V isits Requested Visits Authorized [id number] Closed Auto-Generate d Referral 05/03/2022 06/02/2023 1 1 Summary Purpose Family History No Family History Records Found Advance Directives No Advanced Directives Records Found Additional Source Comments Source Comments (unrecognize d section and content) In the event this informatio n is protected by the Federal Confidentiality of Alcohol and Drug Abuse Patient Records regulations: The Federal rules restrict any use of the information to criminally investigate or prosecute any alcohol or drug abuse patient.[facility] the event this information is protected by the Federal Confidentiality of Alcohol and Drug Abuse Patient Records regulations: The Federal rules restrict any use of the information to criminally investigate or prosecute any alcohol or drug abuse patient.[facility] the event this information is protected by the Federal Confidentiality of Alcohol and Drug Abuse Patient Records regulations: The Federal rules restrict any use of the information to criminally investigate or prosecute any alcohol or drug abuse patient.[facility] the event this information is protected by the Federal Confidentiality of Alcohol and Drug Abuse Patient Records regulations: The Federal rules restrict any use of the information to criminally investigate or prosecute any alcohol or drug abuse patient.[facility] the event this information is protected by the Federal Confidentiality of Alcohol and Drug Abuse Patient Records regulations: The Federal rules restrict any use of the information to criminally investigate or prosecute any alcohol or drug abuse patient.[facility] Reason for Visit (unrecogniz ed section and content) Reason Comments Results Reason Comments Release Of Medical Records Reason Comments Pain Pt reported fall at home x1 day (LT) ankle pain rated 10 w/ mvmt. 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 This clinical summary was aggregated from multiple sources. Caution should be exercised in using it in the provision of clinical care. This summary normalizes information from multiple sources, and as a consequence, information in this document may materially change the coding, format and clinical context of patient data. In addition, data may be omitted in some cases. CLINICAL DECISIONS SHOULD BE BASED ON THE PRIMARY CLINICAL RECORDS. [facility] provides no warranty or guarantee of the accuracy or completeness of information in this document.
== END | disposition home or self-care (01) ==
PROVIDERS: PCP Family Medicine; Referring Provider Family Medicine; Visit Provider Family Medicine
DX: Z12.31 Encounter for screening mammogram for malignant neoplasm of breast (principal)
CPT/HCPCS: 77063; 77067